=== PATIENT | female | born 1985 | race Caucasian/White ===

== ENCOUNTER 2016-08-12 02:00 | Emergency (ER) | payer BC | END 2016-08-12 06:26 | disposition home or self-care (01) | LOC: ER1 02:00 | DX: T78.40XA Allergy, unspecified, initial encounter (principal); I10 Essential (primary) hypertension; E07.9 Disorder of thyroid, unspecified; M10.9 Gout, unspecified; Z79.899 Other long term (current) drug therapy | CPT/HCPCS: 96374; 96375; 99282; J1100; J1200 ==